=== PATIENT | male | born 1945 | race Caucasian/White ===

== ENCOUNTER 2021-12-28 23:08 | Emergency (ER) | payer MEDICARE | END 2021-12-28 23:47 | disposition home or self-care (01) | LOC: CSHERS 23:08 | DX: G25.81 Restless legs syndrome (principal); E11.9 Type 2 diabetes mellitus without complications; Z79.4 Long term (current) use of insulin | CPT/HCPCS: 99283 ==

== ENCOUNTER 2022-09-01 07:33 | Inpatient (IN) | payer MEDICARE, OTHER ==
[2022-09-01] MEDS ORDERED: Morphine 4 MG/ML VIAL ONE (09:24)
[2022-09-01] MEDS ORDERED: Ketorolac Tromethamine 30 MG/ML VIAL ONE (09:25)
[2022-09-01] MEDS ORDERED: cefTRIAXone (ROCEPHIN) 1 GM VIAL ONE (09:25)
[2022-09-01 09:42] LABS: #Basophils 0.1 10x3/uL (0.0-0.2); #Eosinphils 0.3 10x3/uL (0.0-0.5); #Monocytes 1.1 10x3/uL (0.0-1.1); #Neutrophils 8.1 10x3/uL (1.5-8.4); %Basophils 0.9 % (0.0-2.0); %Eosinophils 2.5 % (0.0-6.0); %Lymphocytes 10.1 % (18.0-47.0); %Monocytes 10.1 % (0.0-10.0); %Neutrophils 75.8 % (40.0-75.0); Hemoglobin 12.6 g/dL (13.5-17.5); Mean Corpuscular HGB CONC 34.4 g/dL (32.0-36.0); Mean Corpuscular Hemoglobin 32.1 pg (27.0-33.0); Mean Corpuscular Volume 93.4 fl (81.2-95.1); Mean Platelet Volume 10.8 fl (7.4-10.4); Platelet Count 263 10x3/uL (150-450); RBC Distribution Width 12.7 % (11.5-14.5); Red Blood Cell (RBC) Count 3.92 10x6/uL (4.32-5.72); White Blood Cell (WBC) Count 10.7 10x3/uL (3.5-10.5)
[2022-09-01 09:55] LABS: ALT (SGPT) 21 U/L (8-55); AST (SGOT) 14 U/L (5-34); Albumin 3.8 g/dL (3.4-4.8); Alkaline Phosphatase 137 U/L (40-110); Anion Gap 16 mmol/L (10-20); BUN (Urea Nitrogen) 15 mg/dL (8.4-25.7); Bilirubin, Total 0.5 mg/dL (0.2-1.2); Calc. Creatinine Clearance 0 mL/min (70-130); Calcium 9.5 mg/dL (7.8-10.44); Carbon Dioxide 27 mmol/L (23-31); Chloride 95 mmol/L (98-107); Estimated GFR 85; Globulin 2.3 g/dL (2.4-3.5); Potassium 5.5 mmol/L (3.5-5.1); Protein, Total 6.1 g/dL (5.8-8.1); Sodium 132 mmol/L (136-145)
[2022-09-01 10:10] LABS: Glucose 500 mg/dL (83-110)
[2022-09-01] MEDS ORDERED: Sodium Chloride 0.9% 1,000 ML ONE (11:08)
[2022-09-01] MEDS ORDERED: Insulin Regular 300 UNITS/3 ML VIAL ONE (11:09)
[2022-09-01 12:45] LABS: Bilirubin Neg (Negative); Blood, Urine Negative (Negative); Clarity Clear (Clear); Glucose, Urine (Dipstick) >=1000 mg/dL (Negative); Ketone, Urine Negative (Negative); Leukocyte 25 (Negative); Nitrite Negative (Negative); Protein, Urine (Dipstick) Negative (Neg-Trace); Specific Gravity, Urine 1.005 (1.005-1.030); Urobilinogen Normal mg/dL (Less than 2)
[2022-09-01 12:45] LABS: Anion Gap 15 mmol/L (10-20); BUN (Urea Nitrogen) 14 mg/dL (8.4-25.7); Calc. Creatinine Clearance 0 mL/min (70-130); Calcium 8.6 mg/dL (7.8-10.44); Carbon Dioxide 22 mmol/L (23-31); Chloride 98 mmol/L (98-107); Estimated GFR 91; Potassium 5.5 mmol/L (3.5-5.1); Sodium 129 mmol/L (136-145)
[2022-09-01 12:53] LABS: Glucose 436 mg/dL (83-110)
[2022-09-01 13:16] LABS: Bacteria/HPF 1+ HPF (None Seen); RBC/HPF 0-3 HPF (0-3); Squamous Epithelial 0-3 HPF (0-3); Yeast-Budding 1+ HPF (None Seen)
[2022-09-01] MEDS ORDERED: Ondansetron ODT 4 MG TAB PO PRN (14:59)
[2022-09-01] MEDS ORDERED: Acetaminophen 325 MG TAB PO PRN (14:59)
[2022-09-01] MEDS ORDERED: Sodium Chloride 0.9% 1,000 ML IV SCH (15:00)
[2022-09-01] MEDS ORDERED: Electrolyte Replacement Protocol 1 EACH FS SCH (15:00)
[2022-09-01] MEDS ORDERED: Dextrose 5% in Water 1,000 ML IV PRN (15:01)
[2022-09-01] MEDS ORDERED: HumaLOG 300 UNITS/3 ML VIAL SC PRN (15:01)
[2022-09-01] MEDS ORDERED: Dextrose 50% Abboject 50 ML SYRINGE SLOW IVP PRN (15:01)
[2022-09-01] MEDS ORDERED: Cyclobenzaprine 10 MG TAB PO PRN (15:05)
[2022-09-01] MEDS ORDERED: HYDROcodone/Acetaminophen 5/325 mg Tablet PO PRN (15:11)
[2022-09-01] MEDS ORDERED: Communication Order-Pharmacy FS SCH (17:09)
[2022-09-01] MEDS ORDERED: Lantus 1000 UNITS/10 ML VIAL SC SCH (21:00)
[2022-09-01] MEDS: Atorvastatin Calcium 40 MG TAB PO SCH (22:19)
[2022-09-01] MEDS: rOPINIRole HCl 0.25 MG TAB PO SCH (22:19)
[2022-09-01] MEDS: Gabapentin 300 MG CAP PO SCH (22:19)
[2022-09-01] MEDS: Pramipexole Di-HCl 1 MG TAB PO SCH (22:20)
[2022-09-01 23:03] LABS: Potassium 4.3 mmol/L (3.5-5.1)
[2022-09-01 23:09] VITALS: BMI 19.8
[2022-09-02] MEDS ORDERED: HumaLOG 300 UNITS/3 ML VIAL SC PRN (04:30)
[2022-09-02 05:40] LABS: ALT (SGPT) 16 U/L (8-55); AST (SGOT) 16 U/L (5-34); Albumin 3.4 g/dL (3.4-4.8); Alkaline Phosphatase 111 U/L (40-110); Anion Gap 11 mmol/L (10-20); BUN (Urea Nitrogen) 10 mg/dL (8.4-25.7); Bilirubin, Total 0.5 mg/dL (0.2-1.2); Calc. Creatinine Clearance 81 mL/min (70-130); Calcium 8.6 mg/dL (7.8-10.44); Carbon Dioxide 29 mmol/L (23-31); Chloride 101 mmol/L (98-107); Estimated GFR 93; Globulin 2.4 g/dL (2.4-3.5); Glucose 195 mg/dL (83-110); Magnesium 1.6 mg/dL (1.6-2.6); Potassium 3.9 mmol/L (3.5-5.1); Protein, Total 5.8 g/dL (5.8-8.1); Sodium 137 mmol/L (136-145)
[2022-09-02] MEDS ORDERED: Magnesium 2 GM/50 ML(in water) 2 GM in Premix Bag 1 BAG IVPB SCH (06:00)
[2022-09-02] MEDS: Aspirin 81 mg Enteric Coated Tablet PO SCH ×2 (09:58→09:59)
[2022-09-02] MEDS: Ascorbic Acid 500 mg Chewable Tablet PO SCH (09:58)
[2022-09-02] MEDS: Tamsulosin HCl 0.4 MG CAP PO SCH (09:59)
[2022-09-02] MEDS: Lantus 1000 UNITS/10 ML VIAL SC SCH (09:59)
[2022-09-02] MEDS: Gabapentin 300 MG CAP PO SCH ×3 (09:59→21:35)
[2022-09-02] MEDS: HumaLOG 300 UNITS/3 ML VIAL SC SCH ×3 (10:00→16:59)
[2022-09-02 10:07] LABS: #Basophils 0.1 10x3/uL (0.0-0.2); #Eosinphils 0.4 10x3/uL (0.0-0.5); #Monocytes 0.9 10x3/uL (0.0-1.1); #Neutrophils 8.7 10x3/uL (1.5-8.4); %Basophils 0.8 % (0.0-2.0); %Eosinophils 3.7 % (0.0-6.0); %Lymphocytes 12.1 % (18.0-47.0); Hemoglobin 12.7 g/dL (13.5-17.5); Mean Corpuscular HGB CONC 34.6 g/dL (32.0-36.0); Mean Corpuscular Hemoglobin 32.1 pg (27.0-33.0); Mean Corpuscular Volume 92.7 fl (81.2-95.1); Mean Platelet Volume 10.5 fl (7.4-10.4); Platelet Count 295 10x3/uL (150-450); Red Blood Cell (RBC) Count 3.96 10x6/uL (4.32-5.72); White Blood Cell (WBC) Count 11.5 10x3/uL (3.5-10.5)
[2022-09-02] MEDS: cefTRIAXone\\ROCEPHIN 1 GM in Sodium Chloride 0.9% 100 ML IVPB SCH (12:15)
[2022-09-02] MEDS ORDERED: Gabapentin 300 MG CAP PO SCH (15:00)
[2022-09-02] MEDS: Atorvastatin Calcium 40 MG TAB PO SCH (21:35)
[2022-09-02] MEDS: Pramipexole Di-HCl 1 MG TAB PO SCH (21:35)
[2022-09-02] MEDS: rOPINIRole HCl 0.25 MG TAB PO SCH (21:35)
[2022-09-03 05:41] LABS: #Basophils 0.1 10x3/uL (0.0-0.2); #Eosinphils 0.4 10x3/uL (0.0-0.5); #Monocytes 0.8 10x3/uL (0.0-1.1); #Neutrophils 6.1 10x3/uL (1.5-8.4); %Basophils 0.8 % (0.0-2.0); %Eosinophils 4.4 % (0.0-6.0); %Lymphocytes 14.9 % (18.0-47.0); %Monocytes 9.1 % (0.0-10.0); %Neutrophils 70.3 % (40.0-75.0); Hemoglobin 11.8 g/dL (13.5-17.5); Mean Corpuscular HGB CONC 34.4 g/dL (32.0-36.0); Mean Corpuscular Hemoglobin 31.7 pg (27.0-33.0); Mean Corpuscular Volume 92.2 fl (81.2-95.1); Mean Platelet Volume 10.4 fl (7.4-10.4); Platelet Count 255 10x3/uL (150-450); RBC Distribution Width 13.2 % (11.5-14.5); Red Blood Cell (RBC) Count 3.72 10x6/uL (4.32-5.72); White Blood Cell (WBC) Count 8.7 10x3/uL (3.5-10.5)
[2022-09-03 05:54] LABS: ALT (SGPT) 12 U/L (8-55); AST (SGOT) 12 U/L (5-34); Albumin 2.9 g/dL (3.4-4.8); Alkaline Phosphatase 93 U/L (40-110); Anion Gap 13 mmol/L (10-20); BUN (Urea Nitrogen) 13 mg/dL (8.4-25.7); Bilirubin, Total 0.4 mg/dL (0.2-1.2); Calc. Creatinine Clearance 86 mL/min (70-130); Calcium 8.5 mg/dL (7.8-10.44); Carbon Dioxide 22 mmol/L (23-31); Chloride 107 mmol/L (98-107); Estimated GFR 95; Globulin 2.1 g/dL (2.4-3.5); Glucose 158 mg/dL (83-110); Magnesium 1.8 mg/dL (1.6-2.6); Sodium 138 mmol/L (136-145)
[2022-09-03] MEDS ORDERED: Magnesium 2 GM/50 ML(in water) 2 GM in Premix Bag 1 BAG IVPB SCH (06:30)
[2022-09-03] MEDS ORDERED: Apixaban 5 MG TAB PO SCH (09:00)
[2022-09-03] MEDS ORDERED: Mecobalamin [B12 Active] 1,000 MCG Tab.Chew PO SCH (09:00)
[2022-09-03] MEDS: HumaLOG 300 UNITS/3 ML VIAL SC SCH ×3 (09:41→16:45)
[2022-09-03] MEDS: Lantus 1000 UNITS/10 ML VIAL SC SCH (09:42)
[2022-09-03] MEDS: Ascorbic Acid 500 mg Chewable Tablet PO SCH (09:44)
[2022-09-03] MEDS: Tamsulosin HCl 0.4 MG CAP PO SCH (09:44)
[2022-09-03] MEDS: Gabapentin 300 MG CAP PO SCH ×2 (09:44→14:31)
[2022-09-03] MEDS: cefTRIAXone\\ROCEPHIN 1 GM in Sodium Chloride 0.9% 100 ML IVPB SCH (11:23)
[2022-09-03 17:41] VITALS: BP 136/79; TEMP 97.9
[2022-09-03] MEDS ORDERED: Cephalexin 500 MG CAP PO SCH (18:00)
[2022-09-10] MEDS ORDERED: Apixaban 5 MG TAB PO SCH (09:00)
== END 2022-09-03 19:20 | disposition home or self-care (01) | DRG 300 ==
LOC: CSHERS 07:33 → CSHERHOLD 15:01 → CSHTELE 21:57 → OBSVTOIN 09-02 13:46
PROVIDERS: ADMIT Family Medicine; ATTEND Internal Medicine
DX: I82.411 Acute embolism and thrombosis of right femoral vein (principal); L03.115 Cellulitis of right lower limb; E78.5 Hyperlipidemia, unspecified; E11.42 Type 2 diabetes mellitus with diabetic polyneuropathy; N18.30 Chronic kidney disease, stage 3 unspecified; E87.5 Hyperkalemia; E11.65 Type 2 diabetes mellitus with hyperglycemia; Z66 Do not resuscitate; N40.0 Benign prostatic hyperplasia without lower urinary tract symptoms; I12.9 Hypertensive chronic kidney disease with stage 1 through stage 4 chronic kidney disease, or unspecified chronic kidney disease; E11.22 Type 2 diabetes mellitus with diabetic chronic kidney disease; Z85.46 Personal history of malignant neoplasm of prostate; Z79.4 Long term (current) use of insulin; Z79.51 Long term (current) use of inhaled steroids; Z79.84 Long term (current) use of oral hypoglycemic drugs; Z79.899 Other long term (current) drug therapy; Z98.890 Other specified postprocedural states; Z87.891 Personal history of nicotine dependence
CPT/HCPCS: 36415; 36416; 80053; 81003; 81015; 83605; 83735; 83880; 84100; 84484; 85025; 85379; 87040; 87086; 93005; 93010; 94760; 96365; 96372; 96375; 96376; G0378; J0696; J1650; J1815; J1885; J2270; J3475; J3490; J7050

== ENCOUNTER 2023-02-13 14:38 | Emergency (ER) | payer OTHER, MEDICARE ==
[2023-02-13] MEDS ORDERED: Acetaminophen 500 MG TAB ONE (17:11)
[2023-02-13 17:35] LABS: ALT (SGPT) 16 U/L (8-55); AST (SGOT) 16 U/L (5-34); Albumin 4.1 g/dL (3.4-4.8); Alkaline Phosphatase 93 U/L (40-110); Anion Gap 12 mmol/L (10-20); BUN (Urea Nitrogen) 13 mg/dL (8.4-25.7); Bilirubin, Total 0.5 mg/dL (0.2-1.2); Calc. Creatinine Clearance 0 mL/min (70-130); Calcium 9.1 mg/dL (7.8-10.44); Carbon Dioxide 28 mmol/L (23-31); Chloride 104 mmol/L (98-107); Estimated GFR 89; Globulin 2.9 g/dL (2.4-3.5); Glucose 264 mg/dL (83-110); Potassium 4.4 mmol/L (3.5-5.1); Sodium 140 mmol/L (136-145)
[2023-02-13 17:38] LABS: Troponin I 0.018 ng/mL (< 0.028)
[2023-02-13 17:43] LABS: #Basophils 0.1 10x3/uL (0.0-0.2); #Eosinphils 0.4 10x3/uL (0.0-0.5); #Monocytes 1.1 10x3/uL (0.0-1.1); #Neutrophils 8.6 10x3/uL (1.5-8.4); %Basophils 0.6 % (0.0-2.0); %Eosinophils 3.4 % (0.0-6.0); %Lymphocytes 12.8 % (18.0-47.0); %Monocytes 9.5 % (0.0-10.0); %Neutrophils 73.4 % (40.0-75.0); Hematocrit 38.7 % (38.8-50.0); Hemoglobin 13.1 g/dL (13.5-17.5); Mean Corpuscular HGB CONC 33.9 g/dL (32.0-36.0); Mean Corpuscular Hemoglobin 31.7 pg (27.0-33.0); Mean Corpuscular Volume 93.7 fl (81.2-95.1); Mean Platelet Volume 10.9 fl (7.4-10.4); Platelet Count 279 10x3/uL (150-450); RBC Distribution Width 12.8 % (11.5-14.5); Red Blood Cell (RBC) Count 4.13 10x6/uL (4.32-5.72); White Blood Cell (WBC) Count 11.8 10x3/uL (3.5-10.5)
== END 2023-02-13 18:53 | disposition home or self-care (01) ==
LOC: CSHERS 14:38
DX: S92.352A Displaced fracture of fifth metatarsal bone, left foot, initial encounter for closed fracture (principal); S92.532A Displaced fracture of distal phalanx of left lesser toe(s), initial encounter for closed fracture; E78.00 Pure hypercholesterolemia, unspecified; E11.9 Type 2 diabetes mellitus without complications; W01.10XA Fall on same level from slipping, tripping and stumbling with subsequent striking against unspecified object, initial encounter
CPT/HCPCS: 36415; 70450; 80053; 83880; 84443; 84484; 85025; 93005

== ENCOUNTER 2023-04-23 14:01 | Emergency (ER) | payer MEDICARE ==
[2023-04-23 14:53] LABS: #Basophils 0.1 10x3/uL (0.0-0.2); #Eosinphils 0.1 10x3/uL (0.0-0.5); #Monocytes 0.7 10x3/uL (0.0-1.1); #Neutrophils 9.8 10x3/uL (1.5-8.4); %Basophils 0.5 % (0.0-2.0); %Eosinophils 0.9 % (0.0-6.0); %Neutrophils 83.3 % (40.0-75.0); Hematocrit 38.4 % (38.8-50.0); Hemoglobin 13.7 g/dL (13.5-17.5); Mean Corpuscular HGB CONC 35.7 g/dL (32.0-36.0); Mean Corpuscular Hemoglobin 31.3 pg (27.0-33.0); Mean Corpuscular Volume 87.7 fl (81.2-95.1); Mean Platelet Volume 10.8 fl (7.4-10.4); Platelet Count 294 10x3/uL (150-450); RBC Distribution Width 12.2 % (11.5-14.5); Red Blood Cell (RBC) Count 4.38 10x6/uL (4.32-5.72); White Blood Cell (WBC) Count 11.7 10x3/uL (3.5-10.5)
[2023-04-23 14:56] LABS: Actual Bicarbonate (HCO3v) 24.5 mEq/L (22-28); Analyzer IN Cardio CS NICU; Calcium, Ionized (venous) 1.13 mmol/L (1.16-1.32); Chloride (VBG) 102 mmol/L (98-106); Hematocrit-VBG 44 % (42.0-52.0); Potassium (VBG) 4.22 mmol/L (3.70-5.30); Sodium 140 mmol/L (133-146); pH (venous) 7.323 (7.32-7.43)
[2023-04-23 15:08] LABS: ALT (SGPT) 23 U/L (8-55); AST (SGOT) 14 U/L (5-34); Albumin 4.1 g/dL (3.4-4.8); Alkaline Phosphatase 130 U/L (40-110); Anion Gap 17 mmol/L (10-20); BUN (Urea Nitrogen) 19 mg/dL (8.4-25.7); Bilirubin, Total 1.4 mg/dL (0.2-1.2); Calc. Creatinine Clearance 0 mL/min (70-130); Calcium 8.9 mg/dL (7.8-10.44); Carbon Dioxide 23 mmol/L (23-31); Chloride 104 mmol/L (98-107); Estimated GFR 86; Globulin 2.8 g/dL (2.4-3.5); Glucose 390 mg/dL (83-110); Magnesium 1.7 mg/dL (1.6-2.6); Potassium 4.3 mmol/L (3.5-5.1); Protein, Total 6.9 g/dL (5.8-8.1); Sodium 140 mmol/L (136-145)
[2023-04-23] MEDS ORDERED: Ondansetron PF 4 MG/2 ML Vial ONE (15:10)
[2023-04-23 15:14] LABS: Troponin I Less than 0.010 ng/mL (< 0.028)
[2023-04-23] MEDS ORDERED: Insulin Regular 300 UNITS/3 ML VIAL ONE (18:21)
[2023-04-23 18:22] LABS: Bilirubin Neg (Negative); Blood, Urine 25 (Negative); Clarity Clear (Clear); Glucose, Urine (Dipstick) >=1000 mg/dL (Negative); Ketone, Urine 50 mg/dL (Negative); Leukocyte Negative (Negative); Nitrite Negative (Negative); Protein, Urine (Dipstick) 15 mg/dl (Neg-Trace); Specific Gravity, Urine 1.015 (1.005-1.030); Urobilinogen Normal mg/dL (Less than 2)
[2023-04-23 18:34] LABS: Bacteria/HPF Rare-Few HPF (None Seen); CAUTI Indications for Culture Dysuria,urgency,freq; RBC/HPF 0-3 HPF (0-3); Squamous Epithelial 0-3 HPF (0-3); Urine Culture Reflex No No; WBC/HPF None Seen HPF (0-3)
== END 2023-04-23 19:25 | disposition home or self-care (01) ==
LOC: CSHERS 14:01
DX: E11.65 Type 2 diabetes mellitus with hyperglycemia (principal); R11.2 Nausea with vomiting, unspecified; Z79.4 Long term (current) use of insulin
CPT/HCPCS: 36416; 71045; 80053; 81001; 82805; 83735; 84484; 85025; 93005; 96361; 96374; 96375; J1815; J2405

== ENCOUNTER 2023-05-28 19:07 | Observation (INO) | payer MEDICARE ==
[2023-05-28 20:58] LABS: #Basophils 0.1 10x3/uL (0.0-0.2); #Eosinphils 0.2 10x3/uL (0.0-0.5); #Monocytes 0.9 10x3/uL (0.0-1.1); #Neutrophils 8.7 10x3/uL (1.5-8.4); %Basophils 0.6 % (0.0-2.0); %Eosinophils 1.8 % (0.0-6.0); %Lymphocytes 12.6 % (18.0-47.0); %Monocytes 7.8 % (0.0-10.0); %Neutrophils 76.8 % (40.0-75.0); Hematocrit 37.5 % (38.8-50.0); Hemoglobin 13.8 g/dL (13.5-17.5); Mean Corpuscular HGB CONC 36.8 g/dL (32.0-36.0); Mean Corpuscular Hemoglobin 31.6 pg (27.0-33.0); Mean Corpuscular Volume 85.8 fl (81.2-95.1); Mean Platelet Volume 10.9 fl (7.4-10.4); Platelet Count 273 10x3/uL (150-450); RBC Distribution Width 12.2 % (11.5-14.5); Red Blood Cell (RBC) Count 4.37 10x6/uL (4.32-5.72); White Blood Cell (WBC) Count 11.4 10x3/uL (3.5-10.5)
[2023-05-28 21:13] LABS: ALT (SGPT) 25 U/L (8-55); AST (SGOT) 16 U/L (5-34); Albumin 4.2 g/dL (3.4-4.8); Alkaline Phosphatase 139 U/L (40-110); Anion Gap 16 mmol/L (10-20); BUN (Urea Nitrogen) 15 mg/dL (8.4-25.7); Bilirubin, Total 0.6 mg/dL (0.2-1.2); Calc. Creatinine Clearance 0 mL/min (70-130); Calcium 9.2 mg/dL (7.8-10.44); Carbon Dioxide 20 mmol/L (23-31); Chloride 99 mmol/L (98-107); Estimated GFR 79; Globulin 2.7 g/dL (2.4-3.5); Magnesium 1.7 mg/dL (1.6-2.6); Potassium 4.1 mmol/L (3.5-5.1); Protein, Total 6.9 g/dL (5.8-8.1); Sodium 131 mmol/L (136-145)
[2023-05-28 21:19] LABS: Troponin I 0.018 ng/mL (< 0.028)
[2023-05-28 21:29] LABS: Glucose 530 mg/dL (83-110)
[2023-05-29] MEDS ORDERED: Enoxaparin 80 MG (0.8 mL) SYRINGE ONE (01:37)
[2023-05-29] MEDS ORDERED: Insulin Regular 300 UNITS/3 ML VIAL ONE (01:39)
[2023-05-29] MEDS ORDERED: Senokot S 8.6-50 MG TAB PO PRN (01:50)
[2023-05-29] MEDS ORDERED: Dextrose 5% in Water 1,000 ML IV PRN (01:50)
[2023-05-29] MEDS ORDERED: Glucagon 1 MG/ML KIT IM PRN (01:50)
[2023-05-29] MEDS ORDERED: Dextrose 50% Abboject 50 ML SYRINGE SLOW IVP PRN (01:50)
[2023-05-29] MEDS ORDERED: Ondansetron PF 4 MG/2 ML Vial IVP PRN (01:50)
[2023-05-29] MEDS ORDERED: Calcium Carbonate 500 MG ChewTAB PO PRN (01:50)
[2023-05-29] MEDS ORDERED: Metoprolol Tartrate 25 MG TAB PO SCH (02:15)
[2023-05-29 02:38] LABS: Bilirubin Neg (Negative); Blood, Urine 10 (Negative); Clarity Clear (Clear); Glucose, Urine (Dipstick) >=1000 mg/dL (Negative); Ketone, Urine 50 mg/dL (Negative); Leukocyte 25 (Negative); Nitrite Negative (Negative); Protein, Urine (Dipstick) 15 mg/dl (Neg-Trace); Urobilinogen Normal mg/dL (Less than 2); pH, Urine 6.5 (5.0-9.0)
[2023-05-29 02:47] LABS: Bacteria/HPF None Seen HPF (None Seen); CAUTI Indications for Culture Pelvic or flank pain; RBC/HPF 0-3 HPF (0-3); Squamous Epithelial 0-3 HPF (0-3); WBC/HPF 0-3 HPF (0-3)
[2023-05-29 02:49] LABS: Urine Culture Reflex No No
[2023-05-29] MEDS ORDERED: Metoprolol Tartrate 25 MG TAB ONE (02:58)
[2023-05-29] MEDS ORDERED: Famotidine 20 MG TAB ONE (08:42)
[2023-05-29] MEDS ORDERED: Aspirin 81 mg Enteric Coated Tablet ONE (08:42)
[2023-05-29] MEDS ORDERED: Tamsulosin HCl 0.4 MG CAP ONE (08:43)
[2023-05-29] MEDS ORDERED: Ascorbic Acid 500 mg Chewable Tablet ONE (08:43)
[2023-05-29] MEDS ORDERED: Atorvastatin Calcium 40 MG TAB ONE (08:43)
[2023-05-29] MEDS ORDERED: Gabapentin 300 MG CAP ONE (08:44)
[2023-05-29] MEDS: Famotidine 20 MG TAB PO SCH ×2 (08:46→20:47)
[2023-05-29] MEDS: Gabapentin 300 MG CAP PO SCH ×3 (08:46→20:46)
[2023-05-29] MEDS: Aspirin 81 mg Enteric Coated Tablet PO SCH (08:46)
[2023-05-29] MEDS: Ascorbic Acid 500 mg Chewable Tablet PO SCH (08:46)
[2023-05-29] MEDS: Atorvastatin Calcium 40 MG TAB PO SCH (08:46)
[2023-05-29] MEDS: Tamsulosin HCl 0.4 MG CAP PO SCH (08:48)
[2023-05-29] MEDS: HumaLOG 300 UNITS/3 ML VIAL SC PRN ×4 (08:49→20:54)
[2023-05-29] MEDS ORDERED: Non-Formulary Medication 1 EACH (Mecobalamin [B12 Active] 1,000 MCG Tab.Chew) PO SCH (09:00)
[2023-05-29] MEDS: Lantus 1000 UNITS/10 ML VIAL SC SCH (09:38)
[2023-05-29 11:31] LABS: Anion Gap 12 mmol/L (10-20); BUN (Urea Nitrogen) 11 mg/dL (8.4-25.7); Calc. Creatinine Clearance 82 mL/min (70-130); Calcium 8.9 mg/dL (7.8-10.44); Carbon Dioxide 25 mmol/L (23-31); Chloride 102 mmol/L (98-107); Estimated GFR 90; Glucose 297 mg/dL (83-110); Potassium 3.9 mmol/L (3.5-5.1); Sodium 135 mmol/L (136-145)
[2023-05-29] MEDS ORDERED: Apixaban 5 MG TAB ONE (12:48)
[2023-05-29] MEDS: Apixaban 5 MG TAB PO SCH (12:49)
[2023-05-29 15:08] LABS: Hemoglobin A1c Greater than 14.0 % (4.0-6.0)
[2023-05-29 15:35] VITALS: BMI 23.5
[2023-05-29] MEDS ORDERED: FLU VACC QS2023(65UP)/MF59C/PF 60 MCG/0.5 ML SYRINGE IM ONE (15:45)
[2023-05-29] MEDS: HYDROcodone/Acetaminophen 5/325 mg Tablet PO PRN (17:04)
[2023-05-29] MEDS: rOPINIRole HCl 0.25 MG TAB PO SCH (20:46)
[2023-05-30] MEDS: Apixaban 5 MG TAB PO SCH ×2 (01:04→15:34)
[2023-05-30] MEDS: HYDROcodone/Acetaminophen 5/325 mg Tablet PO PRN ×2 (01:52→18:50)
[2023-05-30] MEDS: Acetaminophen 325 MG TAB PO PRN ×2 (05:03→23:43)
[2023-05-30] MEDS: HumaLOG 300 UNITS/3 ML VIAL SC PRN ×4 (05:08→20:36)
[2023-05-30] MEDS: Famotidine 20 MG TAB PO SCH ×2 (08:04→20:30)
[2023-05-30] MEDS: Aspirin 81 mg Enteric Coated Tablet PO SCH (08:04)
[2023-05-30] MEDS: Ascorbic Acid 500 mg Chewable Tablet PO SCH (08:04)
[2023-05-30] MEDS: Tamsulosin HCl 0.4 MG CAP PO SCH (08:05)
[2023-05-30] MEDS: Gabapentin 300 MG CAP PO SCH ×3 (08:05→20:30)
[2023-05-30] MEDS: Atorvastatin Calcium 40 MG TAB PO SCH (08:05)
[2023-05-30] MEDS: Lantus 1000 UNITS/10 ML VIAL SC SCH (08:06)
[2023-05-30] MEDS: rOPINIRole HCl 0.25 MG TAB PO SCH (20:31)
[2023-05-31] MEDS: Apixaban 5 MG TAB PO SCH ×2 (00:48→12:35)
[2023-05-31 03:55] LABS: #Basophils 0.1 10x3/uL (0.0-0.2); #Eosinphils 0.5 10x3/uL (0.0-0.5); #Neutrophils 6.6 10x3/uL (1.5-8.4); %Basophils 1.3 % (0.0-2.0); %Eosinophils 4.8 % (0.0-6.0); %Lymphocytes 19.5 % (18.0-47.0); %Monocytes 9.3 % (0.0-10.0); %Neutrophils 64.7 % (40.0-75.0); Hematocrit 39.7 % (38.8-50.0); Hemoglobin 14.1 g/dL (13.5-17.5); Mean Corpuscular HGB CONC 35.5 g/dL (32.0-36.0); Mean Corpuscular Hemoglobin 32.2 pg (27.0-33.0); Mean Corpuscular Volume 90.6 fl (81.2-95.1); Mean Platelet Volume 11.2 fl (7.4-10.4); Platelet Count 244 10x3/uL (150-450); RBC Distribution Width 12.4 % (11.5-14.5); Red Blood Cell (RBC) Count 4.38 10x6/uL (4.32-5.72); White Blood Cell (WBC) Count 10.2 10x3/uL (3.5-10.5)
[2023-05-31 04:01] LABS: Anion Gap 12 mmol/L (10-20); BUN (Urea Nitrogen) 14 mg/dL (8.4-25.7); Calc. Creatinine Clearance 94 mL/min (70-130); Calcium 8.7 mg/dL (7.8-10.44); Carbon Dioxide 21 mmol/L (23-31); Chloride 109 mmol/L (98-107); Estimated GFR 92; Glucose 121 mg/dL (83-110); Potassium 4.2 mmol/L (3.5-5.1); Sodium 138 mmol/L (136-145)
[2023-05-31] MEDS: HYDROcodone/Acetaminophen 5/325 mg Tablet PO PRN (04:03)
[2023-05-31] MEDS: Tamsulosin HCl 0.4 MG CAP PO SCH (08:38)
[2023-05-31] MEDS: Gabapentin 300 MG CAP PO SCH (08:39)
[2023-05-31] MEDS: Atorvastatin Calcium 40 MG TAB PO SCH (08:39)
[2023-05-31] MEDS: Ascorbic Acid 500 mg Chewable Tablet PO SCH (08:39)
[2023-05-31] MEDS: Famotidine 20 MG TAB PO SCH (08:40)
[2023-05-31] MEDS: Aspirin 81 mg Enteric Coated Tablet PO SCH (08:40)
[2023-05-31] MEDS: Lantus 1000 UNITS/10 ML VIAL SC SCH (08:41)
[2023-05-31] MEDS ORDERED: Furosemide 20 MG TAB PO SCH (09:00)
[2023-05-31] MEDS ORDERED: Tamsulosin HCl 0.4 MG CAP PO SCH (09:00)
[2023-05-31] MEDS ORDERED: Cyanocobalamin (Vitamin B-12) 1,000 MCG TAB PO SCH (09:00)
[2023-05-31 12:27] VITALS: BP 122/56; TEMP 98.4
[2023-05-31] MEDS: HumaLOG 300 UNITS/3 ML VIAL SC PRN (12:35)
== END 2023-05-31 13:05 | disposition home health service (06) ==
LOC: CSHERS 19:07 → INTOOBSV 05-29 01:36 → CSHERHOLD 05-29 01:36 → CSHTELE 05-29 15:09
PROVIDERS: ADMIT Student in an Organized Health Care Education/Training Program; ATTEND Nurse Practitioner Acute Care
DX: I82.412 Acute embolism and thrombosis of left femoral vein (principal); E11.65 Type 2 diabetes mellitus with hyperglycemia; I10 Essential (primary) hypertension; E78.5 Hyperlipidemia, unspecified; M19.90 Unspecified osteoarthritis, unspecified site; K44.9 Diaphragmatic hernia without obstruction or gangrene; N40.0 Benign prostatic hyperplasia without lower urinary tract symptoms; Z66 Do not resuscitate; E11.40 Type 2 diabetes mellitus with diabetic neuropathy, unspecified; Z79.82 Long term (current) use of aspirin; Z79.01 Long term (current) use of anticoagulants; Z79.4 Long term (current) use of insulin; Z79.899 Other long term (current) drug therapy; Z90.79 Acquired absence of other genital organ(s); Z85.46 Personal history of malignant neoplasm of prostate; Z89.011 Acquired absence of right thumb; Z87.891 Personal history of nicotine dependence
CPT/HCPCS: 36415; 36416; 80048; 80053; 81001; 82010; 83036; 83735; 83880; 84443; 84484; 85025; 85379; 93005; G0378; J1650; J1815

== ENCOUNTER 2023-07-07 06:11 | Inpatient (IN) | payer MEDICARE, OTHER, SELFPAY ==
[2023-07-07] MEDS ORDERED: Acetaminophen 500 MG TAB ONE (06:36)
[2023-07-07 07:38] LABS: ALT (SGPT) 28 U/L (8-55); AST (SGOT) 17 U/L (5-34); Albumin 3.8 g/dL (3.4-4.8); Alkaline Phosphatase 179 U/L (40-110); Anion Gap 15 mmol/L (10-20); BUN (Urea Nitrogen) 14 mg/dL (8.4-25.7); Bilirubin, Total 0.8 mg/dL (0.2-1.2); Calc. Creatinine Clearance 0 mL/min (70-130); Calcium 8.6 mg/dL (7.8-10.44); Carbon Dioxide 24 mmol/L (23-31); Chloride 91 mmol/L (98-107); Estimated GFR 53; Globulin 2.3 g/dL (2.4-3.5); Protein, Total 6.1 g/dL (5.8-8.1); Sodium 126 mmol/L (136-145)
[2023-07-07 07:41] LABS: #Basophils 0.1 10x3/uL (0.0-0.2); #Eosinphils 0.4 10x3/uL (0.0-0.5); #Monocytes 0.8 10x3/uL (0.0-1.1); #Neutrophils 5.6 10x3/uL (1.5-8.4); %Eosinophils 4.6 % (0.0-6.0); %Lymphocytes 16.2 % (18.0-47.0); %Monocytes 9.2 % (0.0-10.0); %Neutrophils 68.3 % (40.0-75.0); Hematocrit 37.3 % (38.8-50.0); Hemoglobin 13.5 g/dL (13.5-17.5); Mean Corpuscular HGB CONC 36.2 g/dL (32.0-36.0); Mean Corpuscular Hemoglobin 32.1 pg (27.0-33.0); Mean Corpuscular Volume 88.8 fl (81.2-95.1); Mean Platelet Volume 11.4 fl (7.4-10.4); Platelet Count 272 10x3/uL (150-450); RBC Distribution Width 12.3 % (11.5-14.5); White Blood Cell (WBC) Count 8.2 10x3/uL (3.5-10.5)
[2023-07-07 07:51] LABS: Glucose 779 mg/dL (83-110)
[2023-07-07 08:06] LABS: Bilirubin Neg (Negative); Blood, Urine Negative (Negative); Clarity Clear (Clear); Glucose, Urine (Dipstick) >=1000 mg/dL (Negative); Ketone, Urine Negative (Negative); Leukocyte Negative (Negative); Nitrite Negative (Negative); Protein, Urine (Dipstick) Negative (Neg-Trace); Urobilinogen Normal mg/dL (Less than 2)
[2023-07-07] MEDS ORDERED: Insulin Regular 300 UNITS/3 ML VIAL ONE (08:25)
[2023-07-07] MEDS ORDERED: INSULIN REGULAR IN 0.9 % NACL 100 UNITS/100 ML BAG ONE (08:26)
[2023-07-07 08:54] LABS: Bacteria/HPF None Seen HPF (None Seen); CAUTI Indications for Culture Dysuria,urgency,freq; RBC/HPF None Seen HPF (0-3); Squamous Epithelial 0-3 HPF (0-3); WBC/HPF None Seen HPF (0-3)
[2023-07-07 08:55] LABS: Urine Culture Reflex No No
[2023-07-07 08:57] LABS: Actual Bicarbonate (HCO3v) 26.7 mEq/L (22-28); Analyzer IN Cardio CS ER; Base Excess 0.5 mEq/L (-2 - +2); Calcium, Ionized (venous) 1.11 mmol/L (1.16-1.32); Chloride (VBG) 92 mmol/L (98-106); Hematocrit-VBG 41 % (42.0-52.0); Hemoglobin (Hb) 13.8 g/dL (12.6-17.4); Potassium (VBG) 3.67 mmol/L (3.70-5.30); Puncture Site Other Site; RapidComm Collect By LAB; Sodium 128 mmol/L (133-146); pH (venous) 7.354 (7.32-7.43)
[2023-07-07 09:11] LABS: Magnesium 1.7 mg/dL (1.6-2.6)
[2023-07-07] MEDS ORDERED: Bisacodyl 10 MG SUPP PR PRN (09:41)
[2023-07-07] MEDS ORDERED: Ondansetron ODT 4 MG TAB PO PRN (09:41)
[2023-07-07] MEDS ORDERED: Senokot S 8.6-50 MG TAB PO PRN (09:41)
[2023-07-07] MEDS ORDERED: Bisacodyl 5 MG TAB PO PRN (09:41)
[2023-07-07] MEDS ORDERED: Ondansetron PF 4 MG/2 ML Vial IVP PRN (09:41)
[2023-07-07] MEDS ORDERED: Guaifenesin DM 100-10/5 ML UDCUP PO PRN (09:41)
[2023-07-07] MEDS ORDERED: Acetaminophen 325 MG TAB PO PRN (09:41)
[2023-07-07] MEDS ORDERED: INSULIN REGULAR IN 0.9 % NACL 100 UNITS in Premix 1 BAG IVPB SCH (09:45)
[2023-07-07] MEDS ORDERED: Dextrose 50% Abboject 50 ML SYRINGE IVP PRN (10:00)
[2023-07-07] MEDS ORDERED: Dextrose 5% in Water 1,000 ML IV PRN ×2 (10:00→11:55)
[2023-07-07] MEDS ORDERED: Glucagon 1 MG/ML KIT IM PRN ×2 (10:00→11:55)
[2023-07-07] MEDS ORDERED: Capsaicin 0.025% Cream 60 gm Tube TOP PRN (10:22)
[2023-07-07] MEDS: Dextrose 5 % And 0.9 % NaCl 1,000 ML IV SCH (11:18)
[2023-07-07] MEDS: Pramipexole Di-HCl 0.25 MG TAB PO SCH (11:26)
[2023-07-07] MEDS ORDERED: Dextrose 50% Abboject 50 ML SYRINGE SLOW IVP PRN (11:55)
[2023-07-07] MEDS: Lantus 1000 UNITS/10 ML VIAL SC SCH ×3 (13:12→21:04)
[2023-07-07 16:49] LABS: Anion Gap 12 mmol/L (10-20); BUN (Urea Nitrogen) 11 mg/dL (8.4-25.7); Calc. Creatinine Clearance 0 mL/min (70-130); Calcium 8.4 mg/dL (7.8-10.44); Carbon Dioxide 25 mmol/L (23-31); Chloride 100 mmol/L (98-107); Estimated GFR 88; Glucose 363 mg/dL (83-110); Potassium 3.9 mmol/L (3.5-5.1); Sodium 133 mmol/L (136-145)
[2023-07-07] MEDS: HumaLOG 300 UNITS/3 ML VIAL SC PRN (16:56)
[2023-07-07 19:13] LABS: Hemoglobin A1c Greater than 14.0 % (4.0-6.0)
[2023-07-07] MEDS: Apixaban 5 MG TAB PO SCH (20:56)
[2023-07-07] MEDS: Pramipexole Di-HCl 1 MG TAB PO SCH (20:56)
[2023-07-07] MEDS: Tamsulosin HCl 0.4 MG CAP PO SCH (20:56)
[2023-07-07] MEDS: Atorvastatin Calcium 40 MG TAB PO SCH (20:56)
[2023-07-07 22:27] VITALS: BMI 25.9
[2023-07-08] MEDS: Lactated Ringer's 500 ML IV SCH ×2 (00:34→00:35)
[2023-07-08 04:08] LABS: #Basophils 0.1 10x3/uL (0.0-0.2); #Eosinphils 0.5 10x3/uL (0.0-0.5); #Monocytes 0.8 10x3/uL (0.0-1.1); #Neutrophils 7.2 10x3/uL (1.5-8.4); %Basophils 0.9 % (0.0-2.0); %Eosinophils 4.7 % (0.0-6.0); %Lymphocytes 16.7 % (18.0-47.0); %Monocytes 7.7 % (0.0-10.0); %Neutrophils 69.5 % (40.0-75.0); Hematocrit 36.3 % (38.8-50.0); Hemoglobin 13.3 g/dL (13.5-17.5); Mean Corpuscular HGB CONC 36.6 g/dL (32.0-36.0); Mean Corpuscular Hemoglobin 31.9 pg (27.0-33.0); Mean Corpuscular Volume 87.1 fl (81.2-95.1); Mean Platelet Volume 10.6 fl (7.4-10.4); Platelet Count 291 10x3/uL (150-450); RBC Distribution Width 12.7 % (11.5-14.5); Red Blood Cell (RBC) Count 4.17 10x6/uL (4.32-5.72); White Blood Cell (WBC) Count 10.4 10x3/uL (3.5-10.5)
[2023-07-08 04:19] LABS: Anion Gap 11 mmol/L (10-20); BUN (Urea Nitrogen) 10 mg/dL (8.4-25.7); Calc. Creatinine Clearance 108 mL/min (70-130); Calcium 8.4 mg/dL (7.8-10.44); Carbon Dioxide 24 mmol/L (23-31); Chloride 106 mmol/L (98-107); Estimated GFR 94; Glucose 103 mg/dL (83-110); Potassium 3.6 mmol/L (3.5-5.1); Sodium 137 mmol/L (136-145)
[2023-07-08] MEDS: Pramipexole Di-HCl 0.25 MG TAB PO SCH (09:06)
[2023-07-08] MEDS: Lantus 1000 UNITS/10 ML VIAL SC SCH (09:07)
[2023-07-08] MEDS: Ascorbic Acid 500 mg Chewable Tablet PO SCH (09:07)
[2023-07-08] MEDS: Aspirin 81 mg Enteric Coated Tablet PO SCH (09:07)
[2023-07-08] MEDS: Cyanocobalamin (Vitamin B-12) 1,000 MCG TAB PO SCH (09:07)
[2023-07-09] MEDS: HumaLOG 300 UNITS/3 ML VIAL SC SCH (16:42)
[2023-07-10] MEDS: Lantus 1000 UNITS/10 ML VIAL SC SCH (08:16)
[2023-07-10 12:10] VITALS: BP 114/62; TEMP 98.2
== END 2023-07-10 13:30 | DRG 638 ==
LOC: CSHERS 06:11 → CSHERHOLD 08:30 → CSHTELE 19:49
PROVIDERS: ADMIT Internal Medicine; ATTEND Internal Medicine
DX: E11.65 Type 2 diabetes mellitus with hyperglycemia (principal); I82.511 Chronic embolism and thrombosis of right femoral vein; N17.9 Acute kidney failure, unspecified; E11.40 Type 2 diabetes mellitus with diabetic neuropathy, unspecified; Z66 Do not resuscitate; G93.89 Other specified disorders of brain; I10 Essential (primary) hypertension; E78.5 Hyperlipidemia, unspecified; G25.81 Restless legs syndrome; N40.0 Benign prostatic hyperplasia without lower urinary tract symptoms; G89.29 Other chronic pain; Z79.899 Other long term (current) drug therapy; Z79.4 Long term (current) use of insulin; Z79.82 Long term (current) use of aspirin; Z90.79 Acquired absence of other genital organ(s); Z89.011 Acquired absence of right thumb; Z80.1 Family history of malignant neoplasm of trachea, bronchus and lung; Z87.891 Personal history of nicotine dependence; Z79.01 Long term (current) use of anticoagulants
CPT/HCPCS: 36415; 36416; 70450; 72125; 80048; 80053; 81001; 82010; 82805; 83036; 83735; 83880; 83930; 84484; 85025; 93970; 96374; J1815; J7042; J7120

== ENCOUNTER 2024-04-22 18:35 | Emergency (ER) | payer MEDICARE ==
[2024-04-22 20:03] LABS: #Eosinophils 0.83 10x3/uL (0.0-0.5); #Monocytes 0.96 10x3/uL (0.0-1.1); #Neutrophils 8.01 10x3/uL (1.5-8.4); %Basophils 0.9 % (0.0-2.0); %Eosinophils 7.2 % (0.0-6.0); %Lymphocytes 13.7 % (18.0-47.0); %Monocytes 8.3 % (0.0-10.0); Hematocrit 35.9 % (38.8-50.0); Mean Corpuscular HGB CONC 33.4 g/dL (32.0-36.0); Mean Corpuscular Hemoglobin 30.8 pg (27.0-33.0); Mean Corpuscular Volume 92.1 fL (81.2-95.1); Mean Platelet Volume 10.3 fL (7.4-10.4); Platelet Count 361 10x3/uL (150-450); RBC Distribution Width 12.6 % (11.5-14.5); White Blood Cell (WBC) Count 11.6 10x3/uL (3.5-10.5)
[2024-04-22 20:21] LABS: ALT (SGPT) 28 U/L (8-55); AST (SGOT) 25 U/L (5-34); Albumin 3.6 g/dL (3.4-4.8); Alkaline Phosphatase 142 U/L (40-110); Anion Gap 15 mmol/L (10-20); BUN (Urea Nitrogen) 17 mg/dL (8.4-25.7); Bilirubin, Total 0.3 mg/dL (0.2-1.2); Calc. Creatinine Clearance 0 mL/min (70-130); Calcium 9.1 mg/dL (7.8-10.44); Carbon Dioxide 24 mmol/L (23-31); Chloride 105 mmol/L (98-107); Estimated GFR 87; Globulin 3.3 g/dL (2.4-3.5); Glucose 239 mg/dL (83-110); Lipase 10 U/L (8-78); Potassium 4.1 mmol/L (3.5-5.1); Protein, Total 6.9 g/dL (5.8-8.1); Sodium 140 mmol/L (136-145)
[2024-04-22 20:26] LABS: Troponin I Less than 0.010 ng/mL (< 0.028)
[2024-04-22] MEDS ORDERED: Furosemide 40 MG (4 mL) VIAL ONE (20:54)
== END 2024-04-22 22:32 | disposition home or self-care (01) ==
LOC: CSHERS 18:35
DX: I50.9 Heart failure, unspecified (principal); E11.9 Type 2 diabetes mellitus without complications
CPT/HCPCS: 71045; 80053; 83605; 83690; 83880; 84484; 85025; 87428; 93005; 96374; 99285; J1940